=== PATIENT | male | born 1975 | race Caucasian/White ===

== ENCOUNTER 2018-02-26 22:14 | Emergency (ER) | payer OTHER ==
[~2018-02-26] VITALS: Ht 165.1 cm; Wt 95.3 kg
[~2018-02-26 22:14] MED LIST: BC POWDER; POLYMYXIN B/TMP10 ML OP
[2018-02-26 22:22] VITALS: BP 190/109
[2018-02-26] MEDS ORDERED: NORCO 5-325 TA1 EACH PO (23:01)
[2018-02-26] MEDS ORDERED: CLEOCIN HCL150 MG PO (23:01)
== END 2018-02-26 23:07 | disposition home or self-care (01) ==
LOC: M.ERS 22:14
DX: K02.9 Dental caries, unspecified (principal); I10 Essential (primary) hypertension; K21.9 Gastro-esophageal reflux disease without esophagitis; Z88.0 Allergy status to penicillin; Z88.8 Allergy status to other drugs, medicaments and biological substances